=== PATIENT | male | born 1980 | race Caucasian/White ===

== ENCOUNTER 2021-06-27 18:12 | Emergency (ER) | payer SELFPAY ==
[~2021-06-27] VITALS: Ht 190.5 cm; Wt 104.0 kg
[2021-06-27] MEDS ORDERED: IBUPROFEN 600MG TABLET PO STA (22:44)
[2021-06-27 23:31] LABS: *AMPHETAMINES SCREEN URINE NEGATIVE (NEGATIVE)
[2021-06-27 23:32] LABS: *BARBITURATES SCREEN URINE NEGATIVE (NEGATIVE); *BENZODIAZEPINES SCREEN URINE PRESUMTIVE POSITIVE (NEGATIVE); *COCAINE SCREEN URINE NEGATIVE (NEGATIVE); OPIATES URINE SCREEN NEGATIVE (NEGATIVE); PHENCYCLIDINE URINE SCREEN NEGATIVE (NEGATIVE)
[2021-06-27 23:33] LABS: CANNABINOID URINE SCREEN NEGATIVE (NEGATIVE); METHADONE URINE SCREEN NEGATIVE (NEGATIVE)
[2021-06-27 23:54] LABS: BASOPHILS % 2.9 % (0.0-2.0); EOSINOPHILS % 0.9 % (0.0-5.0); HEMATOCRIT. 36.1 % (42.0-52.0); HEMOGLOBIN. 11.7 g/dL (14.0-18.0); LYMPHOCYTES % 24.7 % (20.0-50.0); MEAN CORPUSCULAR HEMOGLOBIN 29.6 pg (28.0-32.0); MEAN CORPUSCULAR VOLUME 91.7 fL (80.0-94.0); MEAN PLATELET VOLUME 6.5 fl (7.4-10.4); MONOCYTES % 9.8 % (2.0-8.0); NEUTROPHILS % 61.7 % (40.0-76.0); PLATELET 462 x1000/uL (130-400); RED BLOOD CELL COUNT 3.94 mill/uL (4.7-6.1); RED CELL DISTRIBUTION WIDTH 16.9 % (11.6-14.6)
[2021-06-28 00:03] LABS: CHLORIDE 109 mEq/L (98-107)
[2021-06-28 00:42] LABS: ETHANOL BLOOD 298 mg/dL
[2021-06-28] MEDS ORDERED: MAGNESIUM OXIDE 400MG TABLET PO STA (00:42)
[2021-06-28] MEDS ORDERED: IBUP-2028 MT (01:24)
[2021-06-28 05:10] VITALS: BP 118/65
== END 2021-06-28 05:24 | disposition home or self-care (01) ==
LOC: ER 18:12
DX: M79.661 Pain in right lower leg (principal); M79.662 Pain in left lower leg; Z59.00 Homelessness unspecified
CPT/HCPCS: 36415; 73560; 73590; 73610; 80053; 80305; 80320; 83735; 85025; 93970; 99285; G0480